=== PATIENT | female | born 1950 | race Caucasian/White ===

== ENCOUNTER 2018-11-02 00:28 | Observation (INO) | payer MEDICARE, OTHER ==
[~2018-11-02] VITALS: Ht 154.9 cm; Wt 77.3 kg
[2018-11-02] VITALS (19 sets, daily range): BP systolic 153–175; BP diastolic 58–97; PULSE 61–88; RESP 11–20; Ht 154.9 cm; Wt 77.3 kg
--- NOTE | 2018-11-02 01:12 | ERD ---
ER Documentation Chief Complaint Chief Complaint [id number],from home,vag bleed,dizziness HPI The patient is a 68-year-old female, presenting to the ER because of intermittent vaginal bleeding for the last 3 to 4 days, worse tonight. She complains of lightheadedness tonight from the vaginal bleeding, had similar symptoms 2 years ago and again last year but never follow-up with her inspector heating and refrigeration. She denies fever, chills, neck pain, chest pain, dyspnea, abdominal pain, vomiting, dysuria, diarrhea. She does not smoke nor drink Past medical history: Hypertension, diabetes mellitus, dyslipidemia Past surgical history: None ROS All systems reviewed and are negative except as per history of present illness. Medications Home Meds Reported Medications Icosapent Ethyl (VASCEPA) 1 Gm Capsule, 1 GM PO DAILY for 30 Days, #30 11/02/18 Nebivolol Hcl* (Bystolic*) 10 Mg Tablet, 10 MG PO DAILY for 30 Days, #30 11/02/18 Rosuvastatin Calcium* (Crestor*) 10 Mg Tablet, 10 MG PO DAILY for 30 Days, #30 11/02/18 Ezetimibe* (Zetia*) 10 Mg Tablet, 10 MG PO DAILY for 30 Days, #30 11/02/18 Alendronate Sodium* (Fosamax*) 70 Mg Tablet, 70 MG PO Q7D for 30 Days 11/02/18 Metformin* (Glucophage*) 500 Mg Tab, 500 MG PO BID for 30 Days, #60 11/02/18 Ibuprofen* (Ibuprofen*) 600 Mg Tablet, 600 MG PO DAILY for 30 Days, #60 11/02/18 Meclizine Hcl* (Meclizine Hcl*) 25 Mg Tablet, 25 MG PO DAILY for 30 Days, #30 11/02/18 Amlodipine Besylate/Benazepril (Lotrel 10-40 mg Capsule) 1 Each Capsule, 1 EACH PO DAILY, CAP 11/02/18 Allergies Allergies: Coded Allergies: No Known Allergy (Unverified , 11/02/18) Physical Exam Vitals Vital Signs Date Temp Pulse Resp B/P (MAP) Pulse Ox O2 O2 Flow FiO2 Time Delivery Rate 11/02/18 98.3 64 18 118/76 98 Room Air 07:00 (90) 11/02/18 97.2 59 18 122/60 94 00:31 (80) Physical Exam Const: No acute distress. Head: Atraumatic. Eyes: Normal Conjunctiva. ENT: Normal External Ears, Nose and Mouth. Neck: Full range of motion. No meningismus. Resp: Clear to auscultation bilaterally. Cardio: Regular rate and rhythm. Abd: Soft, non distended, normal bowel sounds, non tender. Skin: No petechiae or rashes. Back: No midline or flank tenderness. Ext: No cyanosis, or edema. Neur: Awake and alert. No focal deficit Psych: Normal Mood and Affect. Result Diagram: 11/02/18 1501 11/02/18 1501 Results 24 hrs Laboratory Tests Test 11/02/18 01:47 11/02/18 03:54 11/02/18 04:33 White Blood Count 11.0 10^3/ul Red Blood Count 3.48 10^6/ul Hemoglobin 10.6 g/dl Hematocrit 33.1 % Mean Corpuscular Volume 95.1 fl Mean Corpuscular Hemoglobin 30.5 pg Mean Corpuscular 32.0 g/dl Hemoglobin Concent Red Cell Distribution Width 11.8 % Platelet Count 213 10^3/UL Mean Platelet Volume 10.7 fl Immature Granulocytes % 0.400 % Neutrophils % 70.5 % Lymphocytes % 20.9 % Monocytes % 7.4 % Eosinophils % 0.3 % Basophils % 0.5 % Nucleated Red Blood Cells % 0.0 /100WBC Immature Granulocytes # 0.040 10^3/ul Neutrophils # 7.8 10^3/ul Lymphocytes # 2.3 10^3/ul Monocytes # 0.8 10^3/ul Eosinophils # 0.0 10^3/ul Basophils # 0.1 10^3/ul Nucleated Red Blood Cells # 0.0 10^3/ul Sodium Level 138 mmol/L Potassium Level 6.1 mmol/L 5.4 mmol/L Chloride Level 105 mmol/L Carbon Dioxide Level 27 mmol/L Anion Gap 6 Blood Urea Nitrogen 23 mg/dl Creatinine 1.04 mg/dl Est Glomerular Filtrat Rate mL/min 52 mL/min Glucose Level 256 mg/dl Hemoglobin A1c 7.0 % Calcium Level 9.1 mg/dl Total Bilirubin 0.3 mg/dl Direct Bilirubin 0.00 mg/dl Indirect Bilirubin 0.3 mg/dl Aspartate Amino Transf (AST/SGOT) 23 IU/L Alanine 30 IU/L Aminotransferase (ALT/SGPT) Alkaline Phosphatase 76 IU/L Troponin I < 0.012 ng/ml Total Protein 6.6 g/dl Albumin 3.7 g/dl Globulin 2.90 g/dl Albumin/Globulin Ratio 1.27 Lipase 103 U/L Bedside Urine pH (LAB) 6.5 Bedside Urine Protein (LAB) 2+ Bedside Urine Glucose (UA) Negative Bedside Urine Ketones (LAB) 1+ Bedside Urine Blood 3+ Bedside Urine Nitrite (LAB) Negative Bedside Urine Leukocyte Esterase Negative (L Current Medications Medications Dose Sig/Jeaneth Start Time Status Last (Trade) Ordered Route PRN Stop Time Admin Dose Reason Admin Sodium 500 ml @ Q1H ONCE 11/02/18 DC 11/02/18 Chloride 500 mls/hr IV 06:00 05:58 11/02/18 06:59 Procedures/[place] [id number] Radiology Main Line: [phone] DIAGNOSTIC IMAGING REPORT Patient: YOSVANY DEJESUS : 1950 Age: 68 Sex: F MR #: [id number] DOS: 11/02/18 0222 Ordering MD: NEVA TANNER MD Location: E/R Room/Bed: PROCEDURE: CT Abdomen and pelvis without contrast. CLINICAL INDICATION: Abdominal pain TECHNIQUE: CT scan of the abdomen and pelvis without contrast was performed on a multidetector high-resolution CT scan. . Coronal and sagittal reformatted images were obtained from the axial source images. Standard CT scan of the abdomen pelvis without contrast protocols were performed. The total exam CTDI equals 19.69 mGy and the total exam DLP equals 1059.27 mGy- cm. One or more of the following dose reduction techniques were used: - Automated exposure control. - Adjustment of the mA and/or kV according to patient size. Use of iterative reconstruction technique. Dicom images are available COMPARISON: None. FINDINGS: There are diverticular changes of the ascending descending and sigmoid colon without CT evidence of diverticulitis. Remainder the colon is unremarkable. The stomach, small bowel and appendix are unremarkable. No evidence of intra-abdominal free air, free fluid, abscesses or lymphadenopathy. Numerous coarse calcifications seen adjacent to the medial posterior aspect of the liver that is nonspecific and likely due to fat necrosis. Kidneys are normal in size without calcified calculi or hydronephrosis bilaterally. There is a pedunculated 2.5 cm angiomyolipoma involving the anterior inferior left kidney. No other intra masses bilaterally. No evidence ureteral calcified calculi or dilatation. Urinary bladder unremarkable. Anteverted anteflexed uterus. Left posterior mid uterine body partially pedunculated 2.5 cm leiomyoma. Uterus is otherwise unremarkable. No adnexal masses. Liver spleen adrenal glands and gallbladder unremarkable. No evidence of biliary ductal dilation. Fatty atrophic pancreas otherwise unremarkable. Lung bases are unremarkable. Coronary artery disease. Atherosclerosis of the aorta and iliac arteries without aneurysm. Abdominal pelvic wall unremarkable. Mild levorotatory scoliosis lower thoracic lumbar spine. Degenerative changes lower thoracic and lumbar spine without acute osseous findings are osteoblastic/osteolytic lesions. IMPRESSION: 1. Colonic diverticulosis without CT evidence of diverticulitis. 2. Unremarkable appendix. 3. No calcified urinary calculi obstructive uropathy. 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 4. Negative for intra-abdominal free air fluid abscesses or lymphadenopathy. RPTAT:AAJJ Physician Jesus Date Time Electronically viewed and signed by Physician Jesus on 11/02/2018 03:19 BM/ CC: NEVA TANNER MD [id number] [place] [id number] Radiology Main Line: [phone] DIAGNOSTIC IMAGING REPORT Patient: YOSVANY DEJEUSS : 1950 Age: 68 Sex: F MR #: [id number] DOS: 11/02/18 0222 Ordering MD: NEVA TANNER MD Location: E/R Room/Bed: PROCEDURE: US Pelvis. CLINICAL INDICATION: Vaginal bleeding TECHNIQUE: Multiple sonographic images of the pelvis were obtained utilizing a transabdominal and endovaginal technique. The images were reviewed on a PACS workstation. COMPARISON: None. FINDINGS: The uterus measures 8.6 x 4.0 x 5.9 cm. Endometrial contours are suboptimally defined, measured thickness of 10 mm. No abnormal vascularity is seen on color- flow imaging. Bilateral ovaries are not at the head. No adnexal masses demonstrated. No evidence of pelvic free fluid. IMPRESSION: 1. Diffusely thickened appearance of the endometrium, measured diameter 10 mm. No associated abnormal vascularity. Differential considerations include endometrial hyperplasia, polyp and carcinoma. If not previously evaluated, PROCESSING REP follow-up and further evaluation with hysterosonography or endometrial sampling is recommended. 2. Ovaries not visualized. RPTAT: [facility] Physician Rivera Date Time Electronically viewed and signed by Physician Rivera on 11/02/2018 05:02 xB/ CC: NEVA TANNER MD [id number] EKG: Read by emergency physician Rate/Rhythm: Normal Sinus Rhythm 64 beats/min QRS, ST, T-waves: No ST elevation, no T inversion Impression: Normal EKG Consultation: I discussed the patient with the on-call inspector heating and refrigeration Dr. Henning at 5:25 AM, who was made aware of the lab, the patient condition and treatment. She accepted the consult MEDICAL MAKING DECISION: The patient is a 68-year-old female, presenting to the ER because of acute vaginal bleeding that is concerning for acute endometrial hyperplasia versus endometrial carcinoma, acute dehydration, acute hyperkalemia most likely due to acute dehydration, acute hematuria. He was treated with normal saline 500 mL IV for acute dehydration The differential diagnoses considered include but are not limited to endometrial hyperplasia, endometrial cancer, endometrial polyps, electrolyte imbalance, dehydration, cardiac arrhythmia Departure Diagnosis: Primary Impression: Vaginal bleeding Additional Impressions: Hyperkalemia Dehydration Anemia Condition: Stable Comments I discussed the findings with the patient. I discussed the patient with Dr. Barkley at 5:35 AM, who was made aware of the lab, the treatment, the patient condition. The patient is admitted to [facility] Disclaimer: Inadvertent spelling and grammatical errors are likely due to EHR/dictation software use and do not reflect on the overall quality of patient care. Also, please note that the electronic time recorded on this note does not necessarily reflect the actual time of the patient encounter. NEVA TANNER MD November 02, 2018 01:12
[2018-11-02] MEDS ORDERED: ALEN70TA5 PO (03:05)
[2018-11-02] MEDS ORDERED: AMLO1CAP2 PO (03:05)
[2018-11-02] MEDS ORDERED: NEBI10TA2 PO (03:05)
[2018-11-02] MEDS ORDERED: ICOS1CAP PO (03:05)
[2018-11-02] MEDS ORDERED: IBUP-1542 PO (03:05)
[2018-11-02] MEDS ORDERED: RSV10T PO (03:05)
[2018-11-02] MEDS ORDERED: METF-849 PO (03:05)
[2018-11-02] MEDS ORDERED: MECL-77 PO (03:05)
[2018-11-02] MEDS ORDERED: EZET10TA31 PO (03:05)
[2018-11-02] MEDS ORDERED: SOD CHLORIDE 0.9% 500 ML IV ONE (06:00)
[2018-11-02] MEDS ORDERED: ONDANSETRON 4 MG INJ IV PRN ×3 (10:00→19:00)
[2018-11-02] MEDS ORDERED: ACETAMINOPHEN 325 MG TAB PO PRN ×2 (10:00→14:30)
--- NOTE | 2018-11-02 14:24 | CONS ---
Assessment/Plan Assessment/Plan Hospital Course (Demo Recall) N/A Assessment/Plan (Daily) 1. Post menopausal bleeding, thick endometrial lining, Discussed with the patient regarding hysteroscopy and D&C due to postmenopausal bleeding and thickened endometrial lining cannot rule out endometrial hyperplasia versus endometrial cancer 2. Patient presented with dizziness, initially to the hospital. Etiology of dizziness unclear, low likely to be related to amount of bleeding since the hemoglobin is mildly low Recommend the patient be evaluated by medicine team for optimization prior to taken to the OR. Currently bleeding controlled. She has minimal bleeding We will keep the patient n.p.o. Plan of care discussed with the patient and her son. Patient will decide about procedure and will let the ER and knows when she make her decision Hesitant to proceed with above-stated procedure however I had a long discussion with the patient about the risk of endometrial cancer or hyperplasia and strongly recommended to proceed with this procedure with close follow-up and monitoring after discharge from the hospital with her addiction medicine physician following week CBC type and screen Consultation Date/Type/Reason Admit Date/Time 11/02/2018 Date/Time of Note DATE: 11/02/18 TIME: 14:06 Hx of Present Illness 68 years old post menopausal female presented to emergency room with complaint of nausea, dizziness, vomiting and lightheadedness after she had an episode of heavy vaginal bleeding today. Patient has been menopause for years. Reports another episode of postmenopausal bleeding 3 years ago. She reports that she had been evaluated by her addiction medicine physician 3 years ago and she was cleared. Never had any biopsy. She denies any prior history of postmenopausal bleeding in the past. She has never been on any hormone replacement therapy neither taking any herbal hormonal medication. Patients symptoms improved when she arrived to the emergency room. She received fluid resuscitation. I was called by emergency room attending for [employer] evaluation due to postme nopausal bleeding. Patient had a pelvic ultrasound that showed thickened endometrial lining 1 cm which is abnormal for postmenopausal woman. Recommendation was to proceed with hysteroscopy and biopsy rule out endometrial hyperplasia or cancer. Constitutional: no complaints Eyes: no complaints ENT: no complaints Respiratory: no complaints Cardiovascular: no complaints Gastrointestinal: no complaints Genitourinary: bleeding Musculoskeletal: no complaints Skin: no complaints Neurologic: dizziness Endocrine: no complaints Lymphatic: no complaints Psychological: no complaints Immunologic: no complaints Past Medical History Past medical history: Next 1. Hypertension 2.Hyperlipidemia 3. Prediabetes Home Meds Reported Medications Icosapent Ethyl (VASCEPA) 1 Gm Capsule, 1 GM PO DAILY for 30 Days, #30 11/02/18 Nebivolol Hcl* (Bystolic*) 10 Mg Tablet, 10 MG PO DAILY for 30 Days, #30 11/02/18 Rosuvastatin Calcium* (Crestor*) 10 Mg Tablet, 10 MG PO DAILY for 30 Days, #30 11/02/18 Ezetimibe* (Zetia*) 10 Mg Tablet, 10 MG PO DAILY for 30 Days, #30 11/02/18 Alendronate Sodium* (Fosamax*) 70 Mg Tablet, 70 MG PO Q7D for 30 Days 11/02/18 Metformin* (Glucophage*) 500 Mg Tab, 500 MG PO BID for 30 Days, #60 11/02/18 Ibuprofen* (Ibuprofen*) 600 Mg Tablet, 600 MG PO DAILY for 30 Days, #60 11/02/18 Meclizine Hcl* (Meclizine Hcl*) 25 Mg Tablet, 25 MG PO DAILY for 30 Days, #30 11/02/18 Amlodipine Besylate/Benazepril (Lotrel 10-40 mg Capsule) 1 Each Capsule, 1 EACH PO DAILY, CAP 11/02/18 Medications Current Medications Ondansetron HCl (Zofran Inj) 4 mg BRIDGE ORDER PRN IV NAUSEA/VOMITING; Start 11/02/18 at 10:00; Stop 11/03/18 at 09:59 Acetaminophen (Tylenol Tab) 650 mg ER BRIDGE PRN PO .MILD PAIN 1-3 OR TEMP; Start 11/02/18 at 10:00; Stop 11/03/18 at 09:59 Allergies: Coded Allergies: No Known Allergy (Unverified , 11/02/18) Past Surgical History 1. Breast augmentation 2. RT ear surgery Family History Significant Family History: other (1. renal failure, mother 2. Lung cancer, father) Social History Patient denies of smoking, drinking alcohol or using any drugs. She is accompanied by her son who translates in Lao language Alcohol Use: none Smoking Status: Never smoker Drug Use: none Exam/Review of Systems Exam Vitals Vital Signs Date Temp Pulse Resp B/P (MAP) Pulse Ox O2 O2 Flow FiO2 Time Delivery Rate 11/02/18 98.3 75 18 140/61 99 Room Air 13:37 (87) Results Result Diagram: 11/02/18 0147 11/02/18 0433 Results 24hrs Laboratory Tests Test 11/02/18 01:47 11/02/18 03:54 11/02/18 04:33 White Blood Count 11.0 H Red Blood Count 3.48 L Hemoglobin 10.6 L Hematocrit 33.1 L Mean Corpuscular Volume 95.1 Mean Corpuscular Hemoglobin 30.5 Mean Corpuscular Hemoglobin Concent 32.0 Red Cell Distribution Width 11.8 Platelet Count 213 Mean Platelet Volume 10.7 H Immature Granulocytes % 0.400 Neutrophils % 70.5 Lymphocytes % 20.9 Monocytes % 7.4 Eosinophils % 0.3 Basophils % 0.5 Nucleated Red Blood Cells % 0.0 Immature Granulocytes # 0.040 H Neutrophils # 7.8 H Lymphocytes # 2.3 Monocytes # 0.8 Eosinophils # 0.0 Basophils # 0.1 Nucleated Red Blood Cells # 0.0 Sodium Level 138 Potassium Level 6.1 *H 5.4 H Chloride Level 105 Carbon Dioxide Level 27 Anion Gap 6 Blood Urea Nitrogen 23 H Creatinine 1.04 H Est Glomerular Filtrat Rate mL/min 52 L Glucose Level 256 H Calcium Level 9.1 Total Bilirubin 0.3 Direct Bilirubin 0.00 Indirect Bilirubin 0.3 Aspartate Amino Transf (AST/SGOT) 23 Alanine Aminotransferase (ALT/SGPT) 30 Alkaline Phosphatase 76 Troponin I < 0.012 Total Protein 6.6 Albumin 3.7 Globulin 2.90 Albumin/Globulin Ratio 1.27 Lipase 103 Bedside Urine pH (LAB) 6.5 Bedside Urine Protein (LAB) 2+ H Bedside Urine Glucose (UA) Negative Bedside Urine Ketones (LAB) 1+ H Bedside Urine Blood 3+ H Bedside Urine Nitrite (LAB) Negative Bedside Urine Leukocyte Esterase (L Negative Imaging Imaging PROCEDURE: US Pelvis. CLINICAL INDICATION: Vaginal bleeding TECHNIQUE: Multiple sonographic images of the pelvis were obtained utilizing a transabdominal and endovaginal technique. The images were reviewed on a PACS workstation. COMPARISON: None. FINDINGS: The uterus measures 8.6 x 4.0 x 5.9 cm. Endometrial contours are suboptimally defined, measured thickness of 10 mm. No abnormal vascularity is seen on color- flow imaging. Bilateral ovaries are not at the head. No adnexal masses demonstrated. No evidence of pelvic free fluid. IMPRESSION: 1. Diffusely thickened appearance of the endometrium, measured diameter 10 mm. No associated abnormal vascularity. Differential considerations include endometrial hyperplasia, polyp and carcinoma. If not previously evaluated, [employer] follow-up and further evaluation with hysterosonography or endometrial sampling is recommended. 2. Ovaries not visualized. RPTAT: [facility] PROCEDURE: CT Abdomen and pelvis without contrast. CLINICAL INDICATION: Abdominal pain TECHNIQUE: CT scan of the abdomen and pelvis without contrast was performed on a multidetector high-resolution CT scan. . Coronal and sagittal reformatted images were obtained from the axial source images. Standard CT scan of the abdomen pelvis without contrast protocols were performed. The total exam CTDI equals 19.69 mGy and the total exam DLP equals 1059.27 mGy- cm. One or more of the following dose reduction techniques were used: - Automated exposure control. - Adjustment of the mA and/or kV according to patient size. Use of iterative reconstruction technique. Dicom images are available COMPARISON: None. FINDINGS: There are diverticular changes of the ascending descending and sigmoid colon without CT evidence of diverticulitis. Remainder the colon is unremarkable. The stomach, small bowel and appendix are unremarkable. No evidence of intra-abdominal free air, free fluid, abscesses or lymphadenopathy. Numerous coarse calcifications seen adjacent to the medial posterior aspect of the liver that is nonspecific and likely due to fat necrosis. Kidneys are normal in size without calcified calculi or hydronephrosis bilaterally. There is a pedunculated 2.5 cm angiomyolipoma involving the anterior inferior left kidney. No other intra masses bilaterally. No evidence ureteral calcified calculi or dilatation. Urinary bladder unremarkable. Anteverted anteflexed uterus. Left posterior mid uterine body partially pedunculated 2.5 cm leiomyoma. Uterus is otherwise unremarkable. No adnexal masses. Liver spleen adrenal glands and gallbladder unremarkable. No evidence of biliary ductal dilation. Fatty atrophic pancreas otherwise unremarkable. Lung bases are unremarkable. Coronary artery disease. Atherosclerosis of the aorta and iliac arteries without aneurysm. Abdominal pelvic wall unremarkable. Mild levorotatory scoliosis lower thoracic lumbar spine. Degenerative changes lower thoracic and lumbar spine without acute osseous findings are osteoblastic/osteolytic lesions. IMPRESSION: 1. Colonic diverticulosis without CT evidence of diverticulitis. 2. Unremarkable appendix. 3. No calcified urinary calculi obstructive uropathy. 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 4. Negative for intra-abdominal free air fluid abscesses or lymphadenopathy. RPTAT:AAJJ Cehlsey Parra, Physician Date Time Electronically viewed and signed by Chelsey Parra Physician on 11/02/2018 03:19 BM/ CC: NEVA TANNER MD Medications Medication Current Medications Ondansetron HCl (Zofran Inj) 4 mg BRIDGE ORDER PRN IV NAUSEA/VOMITING; Start 11/02/18 at 10:00; Stop 11/03/18 at 09:59 Acetaminophen (Tylenol Tab) 650 mg ER BRIDGE PRN PO .MILD PAIN 1-3 OR TEMP; Start 11/02/18 at 10:00; Stop 11/03/18 at 09:59 KANDI SEVERINO MD November 02, 2018 14:17
[2018-11-02] MEDS ORDERED: ZOLPIDEM 5 MG TAB PO PRN (14:30)
[2018-11-02] MEDS: LACTATED RINGER'S 1,000 ML IV SCH (14:30)
[2018-11-02] MEDS: DOCUSATE SODIUM 100 MG CAP PO SCH (14:30)
[2018-11-02] MEDS ORDERED: CEFAZOLIN 2 GM/50 ML (PMX) 50 ML IVPB ONE (14:30)
--- NOTE | 2018-11-02 15:12 | HP ---
Date/Time of Note Date/Time of Note DATE: 11/02/18 TIME: 14:58 Assessment/Plan VTE Prophylaxis SCD applied (from Nsg): Yes Pharmacological prophylaxis: NA/contraindicated Pharm contraindication: bleeding Lines/Catheters IV Catheter Type (from Nrsg): Saline Lock Assessment/Plan Hospital Course 68-year-old female who presented to the emergency room with postmenopausal bleeding x3 years with a bad episode warranting ER visit managed as follows : 1. Acute on chronic postmenopausal bleeding with endometrial thickening on ultrasound 2. Mild ZENIA with hyperkalemia 3. Rule out chronic kidney disease 4. Diabetes mellitus with suboptimal home control 5. Chronic dyslipidemia 6. Acute on chronic anemia with normocytic indices 7. Leukocytosis, likely reactive 8. 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 EKG has been reviewed by me shows normal normal sinus rhythm with normal rate. We will also repeat basic metabolic profile. If potassium levels are improved and CXR has no acute abnormalities, no other cardiac intervention is warranted for risk st ratification at this time. Patient may proceed with endometrial biopsy. -Get hemoglobin A1c, use sliding scale only for now, but patient will require hypoglycemic therapy at discharge. Apparently prior to this patient was prediabetic and not on hypoglycemic therapy. -Patient to benefit from outpatient monitoring of angiomyolipoma on the left kidney, may require urology consult even, but this may be followed outpatient -Resume home medications for blood pressure and dyslipidemia -Further interventions per clinical course. Result Diagram: 11/02/18 0147 11/02/18 0433 Results 24hrs Laboratory Tests Test 11/02/18 01:47 11/02/18 03:54 11/02/18 04:33 White Blood Count 11.0 H Red Blood Count 3.48 L Hemoglobin 10.6 L Hematocrit 33.1 L Mean Corpuscular Volume 95.1 Mean Corpuscular Hemoglobin 30.5 Mean Corpuscular Hemoglobin Concent 32.0 Red Cell Distribution Width 11.8 Platelet Count 213 Mean Platelet Volume 10.7 H Immature Granulocytes % 0.400 Neutrophils % 70.5 Lymphocytes % 20.9 Monocytes % 7.4 Eosinophils % 0.3 Basophils % 0.5 Nucleated Red Blood Cells % 0.0 Immature Granulocytes # 0.040 H Neutrophils # 7.8 H Lymphocytes # 2.3 Monocytes # 0.8 Eosinophils # 0.0 Basophils # 0.1 Nucleated Red Blood Cells # 0.0 Sodium Level 138 Potassium Level 6.1 *H 5.4 H Chloride Level 105 Carbon Dioxide Level 27 Anion Gap 6 Blood Urea Nitrogen 23 H Creatinine 1.04 H Est Glomerular Filtrat Rate mL/min 52 L Glucose Level 256 H Calcium Level 9.1 Total Bilirubin 0.3 Direct Bilirubin 0.00 Indirect Bilirubin 0.3 Aspartate Amino Transf (AST/SGOT) 23 Alanine Aminotransferase (ALT/SGPT) 30 Alkaline Phosphatase 76 Troponin I < 0.012 Total Protein 6.6 Albumin 3.7 Globulin 2.90 Albumin/Globulin Ratio 1.27 Lipase 103 Bedside Urine pH (LAB) 6.5 Bedside Urine Protein (LAB) 2+ H Bedside Urine Glucose (UA) Negative Bedside Urine Ketones (LAB) 1+ H Bedside Urine Blood 3+ H Bedside Urine Nitrite (LAB) Negative Bedside Urine Leukocyte Esterase (L Negative HPI/ROS Admit Date/Time Admit Date/Time 11/02/2018 Hx of Present Illness 68-year-old female who presented to the emergency room with postmenopausal bleeding. This has been on and off over the last 3 years, but yesterday had a significant episode that warranted the emergency room visit. This episode was assisted with nausea vomiting and some mild dizziness. Last Pap smear was roughly about 3 months ago again for the same indication, and per the patient and her family she seems to think it was normal because she was not told to do any follow-up. At this time she is stable, she is still having some bleeding, but it is only minimal. She denies pain, denies fever. A pelvic ultrasound that was done on arrival showed a thickened endometrium measuring 10 mm with differential for endometrial hyperplasia, polyp and carcinoma. Patient is recommended for endometrial biopsy and admission. Concern also was a potassium of 6.1 and a creatinine of 1.04. Patient is a known diabetic and her blood sugar was elevated at 256 on arrival as well. Otherwise she has no complaints. She denies fever, denies dysuria, denies chest pain, denies passing out episodes. She has some lethargy, but no dizziness or fainting spells. ROS 12 point review if systems was done and pertinent findings are as noted. PMH/Family/Social Past Medical History dyslipidemia GERD Osteoporosis Medical History: diabetes, hypertension Medications Current Medications Ondansetron HCl (Zofran Inj) 4 mg BRIDGE ORDER PRN IV NAUSEA/VOMITING; Start 11/02/18 at 10:00; Stop 11/03/18 at 09:59 Acetaminophen (Tylenol Tab) 650 mg ER BRIDGE PRN PO .MILD PAIN 1-3 OR TEMP; Start 11/02/18 at 10:00; Stop 11/03/18 at 09:59 Miscellaneous Information (* Miscellaneous Pharmacy Order) Discontinue current oral sulfonylur... ONCE ONCE XX ; Start 11/02/18 at 14:30; Stop 11/02/18 at 14:31; Status UNV Diagnostic Test (Pha) (Accu-Chek) 1 XX ; Start 11/03/18 at 02:00; Status UNV Miscellaneous Information (* Miscellaneous Pharmacy Order) HYPOGLYCEMIA PROTOCOL w... ONCE ONCE XX ; Start 11/02/18 at 14:30; Stop 11/02/18 at 14:31; Status UNV Insulin Aspart (Novolog Insulin Pen) NOVOLOG *MILD* ALGORITHM WITH MEALS BEDTIME SC ; Start 11/02/18 at 18:00; Status UNV Miscellaneous Information (* Miscellaneous Pharmacy Order) Discontinue all previ... ONCE ONCE XX ; Start 11/02/18 at 14:30; Stop 11/02/18 at 14:31; Status UNV Ondansetron HCl (Zofran Inj) 4 mg Q6H PRN IV NAUSEA/VOMITING; Start 11/02/18 at 14:30; Status UNV Acetaminophen (Tylenol Tab) 650 mg Q6H PRN PO .PAIN 1-3 OR TEMP; Start 11/02/18 at 14:30; Status UNV Docusate Sodium (Colace) 100 mg Q12H PO ; Start 11/02/18 at 14:30; Status UNV Zolpidem Tartrate (Ambien) 5 mg QHS PRN PO .INSOMNIA; Start 11/02/18 at 14:30; Status UNV Famotidine (Pepcid) 20 mg Q12 PO ; Start 11/02/18 at 21:00; Status UNV EZETIMIBE (Zetia) 10 mg DAILY PO ; Start 11/03/18 at 09:00; Status UNV Meclizine HCl (Antivert) 25 mg DAILY PO ; Start 11/03/18 at 09:00; Status UNV Miscellaneous Information 1 each DAILY PO ; Start 11/02/18 at 14:30; Status UNV Miscellaneous Information 1 gm DAILY PO ; Start 11/02/18 at 14:30; Status UNV Miscellaneous Information 10 mg DAILY PO ; Start 11/02/18 at 14:30; Status UNV Lactated Ringer's 1,000 ml @ 125 mls/hr Q8H IV ; Start 11/02/18 at 14:30; Status UNV Cefazolin Sodium/ Dextrose 50 ml @ 100 mls/hr PRE-OP ONCE IVPB ; Start 11/02/18 at 14:30; Stop 11/02/18 at 14:59; Status UNV Coded Allergies: No Known Allergy (Unverified , 11/02/18) Family History Significant Family History: no pertinent family hx, other (1. renal failure, mother 2. Lung cancer, father) Social History Alcohol Use: none Smoking Status: Never smoker Drug Use: none Exam/Review of Systems Vital Signs Vitals Vital Signs Date Temp Pulse Resp B/P (MAP) Pulse Ox O2 O2 Flow FiO2 Time Delivery Rate 11/02/18 98.3 75 18 140/61 99 Room Air 13:37 (87) Exam Exam General: A&O x3, answering questions appropriately, no distress HEENT: NC/ AT. PERRL. EOM intact, mild pallor, no icterus Neck: supple CVS: S1, S2, RRR. no murmurs. no pain on chest wall palpation Lungs: CTA b/l. no wheezing or rhonchi Abd: soft, nontender, +BS Ext: moving all extremities, no edema skin: no rashes, no ecchymosis Additional Comments PROCEDURE: US Pelvis. CLINICAL INDICATION: Vaginal bleeding TECHNIQUE: Multiple sonographic images of the pelvis were obtained utilizing a transabdominal and endovaginal technique. The images were reviewed on a PACS workstation. COMPARISON: None. FINDINGS: The uterus measures 8.6 x 4.0 x 5.9 cm. Endometrial contours are suboptimally defined, measured thickness of 10 mm. No abnormal vascularity is seen on color- flow imaging. Bilateral ovaries are not at the head. No adnexal masses demonstrated. No evidence of pelvic free fluid. IMPRESSION: 1. Diffusely thickened appearance of the endometrium, measured diameter 10 mm. No associated abnormal vascularity. Differential considerations include endometrial hyperplasia, polyp and carcinoma. If not previously evaluated, TRA[employer]EL INFORMATION [employer] SUPERVISOR follow-up and further evaluation with hysterosonography or endometrial sampling is recommended. 2. Ovaries not visualized. RPTAT: HJBB Abdulaziz Mcmillan Physician Date Time Electronically viewed and signed by Abdulaziz Mcmillan Physician on 11/02/2018 05: 02 xB/ CC: NEVA TANNER MD [id number] PROCEDURE: CT Abdomen and pelvis without contrast. CLINICAL INDICATION: Abdominal pain TECHNIQUE: CT scan of the abdomen and pelvis without contrast was performed on a multidetector high-resolution CT scan. . Coronal and sagittal reformatted images were obtained from the axial source images. Standard CT scan of the abdomen pelvis without contrast protocols were performed. The total exam CTDI equals 19.69 mGy and the total exam DLP equals 1059.27 mGy- cm. One or more of the following dose reduction techniques were used: - Automated exposure control. - Adjustment of the mA and/or kV according to patient size. Use of iterative reconstruction technique. Dicom images are available COMPARISON: None. FINDINGS: There are diverticular changes of the ascending descending and sigmoid colon without CT evidence of diverticulitis. Remainder the colon is unremarkable. The stomach, small bowel and appendix are unremarkable. No evidence of intra-abdominal free air, free fluid, abscesses or lymphadenopathy. Numerous coarse calcifications seen adjacent to the medial posterior aspect of the liver that is nonspecific and likely due to fat necrosis. Kidneys are normal in size without calcified calculi or hydronephrosis bilaterally. There is a pedunculated 2.5 cm angiomyolipoma involving the anterior inferior left kidney. No other intra masses bilaterally. No evidence ureteral calcified calculi or dilatation. Urinary bladder unremarkable. Anteverted anteflexed uterus. Left posterior mid uterine body partially pedunculated 2.5 cm leiomyoma. Uterus is otherwise unremarkable. No adnexal masses. Liver spleen adrenal glands and gallbladder unremarkable. No evidence of biliary ductal dilation. Fatty atrophic pancreas otherwise unremarkable. Lung bases are unremarkable. Coronary artery disease. Atherosclerosis of the ao rta and iliac arteries without aneurysm. Abdominal pelvic wall unremarkable. Mild levorotatory scoliosis lower thoracic lumbar spine. Degenerative changes lower thoracic and lumbar spine without acute osseous findings are osteoblastic/osteolytic lesions. IMPRESSION: 1. Colonic diverticulosis without CT evidence of diverticulitis. 2. Unremarkable appendix. 3. No calcified urinary calculi obstructive uropathy. 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 4. Negative for intra-abdominal free air fluid abscesses or lymphadenopathy. RPTAT:AAJJ Physician Jesus Date Time Electronically viewed and signed by Physician Jesus on 11/02/2018 03:19 BM/ CC: NEVA TANNER MD [id number] I reviewed EKG Rate: Within normal limits Rhythm: sinus Note: No ST elevation or depressions noted concerning for acute ischemic event. REY PRYOR November 02, 2018 15:08
[2018-11-02] MEDS ORDERED: GLUCOSE GEL 15 GRAM TUBE PO PRN ×2 (16:00)
[2018-11-02] MEDS ORDERED: GLUCOSE GEL 15 GRAM TUBE BUCCAL PRN (16:00)
[2018-11-02] MEDS ORDERED: DEXTROSE 50% 50 ML SYRINGE IV PRN ×2 (16:00)
[2018-11-02] MEDS ORDERED: GLUCAGON 1 MG INJ IM PRN (16:00)
[2018-11-02] MEDS ORDERED: INSULIN ASPART [NOVOLOG] 3 ML PEN SC SCH ×2 (17:00→18:00)
--- NOTE | 2018-11-02 18:35 | PREAC ---
Date/Time of Note Date/Time of Note DATE: 11/02/18 TIME: 18:33 Anesthesia Eval and Record Evaluation Time Pre-Procedure Interview DATE: 11/02/18 TIME: 18:33 Age 68 Sex female NPO: 8 hrs Preoperative diagnosis post menopausal vaginal bleeding Planned procedure hysteroscopy d&C Past Medical History Past Medical History: Includes Cardio: HTN Endo: Diabetes GI: Obesity Surgery & Anesthesia Issues No known issue Meds Anticoagulation: No Beta Cristela within 24 hr: Yes Reason Beta Cristela not given: Pt. not on B-Cristela Reported Medications Icosapent Ethyl (VASCEPA) 1 Gm Capsule, 1 GM PO DAILY for 30 Days, #30 11/02/18 Nebivolol Hcl* (Bystolic*) 10 Mg Tablet, 10 MG PO DAILY for 30 Days, #30 11/02/18 Rosuvastatin Calcium* (Crestor*) 10 Mg Tablet, 10 MG PO DAILY for 30 Days, #30 11/02/18 Ezetimibe* (Zetia*) 10 Mg Tablet, 10 MG PO DAILY for 30 Days, #30 11/02/18 Alendronate Sodium* (Fosamax*) 70 Mg Tablet, 70 MG PO Q7D for 30 Days 11/02/18 Metformin* (Glucophage*) 500 Mg Tab, 500 MG PO BID for 30 Days, #60 11/02/18 Ibuprofen* (Ibuprofen*) 600 Mg Tablet, 600 MG PO DAILY for 30 Days, #60 11/02/18 Meclizine Hcl* (Meclizine Hcl*) 25 Mg Tablet, 25 MG PO DAILY for 30 Days, #30 11/02/18 Amlodipine Besylate/Benazepril (Lotrel 10-40 mg Capsule) 1 Each Capsule, 1 EACH PO DAILY, CAP 11/02/18 Current Medications Diagnostic Test (Pha) (Accu-Chek) 1 ea 02 XX ; Start 11/03/18 at 02:00 Ondansetron HCl (Zofran Inj) 4 mg Q6H PRN IV NAUSEA/VOMITING; Start 11/02/18 at 14:30 Acetaminophen (Tylenol Tab) 650 mg Q6H PRN PO .PAIN 1-3 OR TEMP; Start 11/02/18 at 14:30 Docusate Sodium (Colace) 100 mg Q12H PO ; Start 11/02/18 at 14:30 Zolpidem Tartrate (Ambien) 5 mg QHS PRN PO .INSOMNIA; Start 11/02/18 at 14:30 Famotidine (Pepcid) 20 mg Q12 PO ; Start 11/02/18 at 21:00 EZETIMIBE (Zetia) 10 mg DAILY PO ; Start 11/03/18 at 09:00 Meclizine HCl (Antivert) 25 mg DAILY PO ; Start 11/03/18 at 09:00 Amlodipine Besylate (Norvasc) 10 mg DAILY PO ; Start 11/03/18 at 09:00 Miscellaneous Information 1 gm DAILY PO ; Start 11/02/18 at 14:30; Status UNV Atorvastatin Calcium (Lipitor) 40 mg DAILY@2100 PO ; Start 11/02/18 at 21:00 Lactated Ringer's 1,000 ml @ 80 mls/hr [id number] IV ; Start 11/02/18 at 14:30 Insulin Aspart (Novolog Insulin Pen) NOVOLOG *MILD* ALGORI... Q4 SC ; Start 11/02/18 at 17:00 Miscellaneous Information 1 ea NOTE XX ; Start 11/02/18 at 16:00 Glucose (Glutose) 15 gm Q15M PRN PO DECREASED GLUCOSE; Start 11/02/18 at 16:00 Glucose (Glutose) 22.5 gm Q15M PRN PO DECREASED GLUCOSE; Start 11/02/18 at 16:00 Dextrose (D50w Syringe) 25 ml Q15M PRN IV DECREASED GLUCOSE; Start 11/02/18 at 16:00 Dextrose (D50w Syringe) 50 ml Q15M PRN IV DECREASED GLUCOSE; Start 11/02/18 at 16:00 Glucagon (Glucagen) 1 mg Q15M PRN IM DECREASED GLUCOSE; Start 11/02/18 at 16:00 Glucose (Glutose) 15 gm Q15M PRN BUCCAL DECREASED GLUCOSE; Start 11/02/18 at 16:00 Benazepril HCl (Lotensin) 40 mg DAILY PO ; Start 11/03/18 at 09:00 Meds reviewed: Yes Allergies Coded Allergies: No Known Allergy (Unverified , 11/02/18) Allergies Reviewed: Yes Labs/Studies Labs Reviewed: Reviewed by anesthesiologist Result Diagram: 11/02/18 1501 11/02/18 1501 Laboratory Tests 11/02/18 15:01 Blood Bank Test 11/02/18 01:47 Antibody Screen NEGATIVE Blood Type A POSITIVE test: N/A Studies: ECG (sr), CXR (nl) Pre-procedure Exam Last vitals Vital Signs Date Temp Pulse Resp B/P (MAP) Pulse Ox O2 O2 Flow FiO2 Time Delivery Rate 11/02/18 98.9 75 18 168/67 100 17:17 (100) 11/02/18 Room Air 17:15 Airway: Adequate mouth opening Mallampati: Mallampati I Teeth: Normal Lung: Normal Heart: Normal ASA Physical Status ASA physical status: 2 Emergency: None Planned Anesthetic General/MAC: LMA Planned Pain Management Parenteral pain med Pre-operative Attestations Prior to commencing anesthesia and surgery, the patient was re-evaluated, there was verification of: *The patient's identity *The results of appropriate recent lab work and preoperative vital signs *The above evaluation not changing prior to induction *Anesthetic plan, risk benefits, alternative and complications discussed with patient/family; questions answered; patient/family understands, accepts and wishes to proceed. DEDE FARIAS MD November 02, 2018 18:35
[2018-11-02] MEDS ORDERED: LABETALOL HCL 20MG INJ IV PRN (19:00)
[2018-11-02] MEDS ORDERED: MEPERIDINE 25 MG INJ IV PRN (19:00)
[2018-11-02] MEDS ORDERED: HYDROmorphONE 1 MG/5 ML IV SYRINGE IV PRN ×3 (19:00)
[2018-11-02] MEDS ORDERED: FENTAnyl 50 MCG/ML VIAL IV PRN ×3 (19:00)
[2018-11-02] MEDS ORDERED: DIPHENHYDRAMINE 50 MG INJ IV PRN (19:00)
[2018-11-02] MEDS ORDERED: hydrALAzine 20 MG INJ IV PRN (19:00)
[2018-11-02] MEDS ORDERED: PROPOFOL 20 ML ONE (19:21)
[2018-11-02] MEDS ORDERED: METOCLOPRAMIDE 10 MG INJ ONE (19:21)
[2018-11-02] MEDS ORDERED: ONDANSETRON 4 MG INJ ONE (19:21)
[2018-11-02] MEDS ORDERED: MIDAZOLAM 1 MG/ML 2 ML INJ ONE (19:21)
[2018-11-02] MEDS ORDERED: CEFAZOLIN 1 GM INJ ONE (19:40)
[2018-11-02] MEDS ORDERED: FENTAnyl 50 MCG/ML VIAL ONE (20:01)
--- NOTE | 2018-11-02 20:57 | OPR ---
Date/Time of Note Date/Time of Note DATE: 11/02/18 TIME: 20:47 Operative Report Free Text/Dictation 11/02/2018 Procedure Date: November 02, 2018 Preoperative Diagnosis 1. Post menopausal bleeding 2. Dizziness, lightheadadness Postoperative Diagnosis Significant large amount of hyperplastic endometrium inside the uterine cavity concerning for possible endometrial cancer versus endometrial hyperplasia noted Operation/Procedure Performed Hysteroscopy and D&C Surgeon see signature line Counter Installer Surgical scrub Anesthesia Type: MAC Anesthesiologist: DEDE FARIAS MD Estimated Blood Loss: 10 - 50 ml's Transfusion none Specimen Endocervical curetting and endometrial curetting Grafts/Implants none Tubes/Drains None Complications none Pt Condition Post Procedure: stable Disposition: PACU Indications Post menopausal bleeding Procedure Description After discussion with the patient about risk and benefit of procedure including risk of infection, bleeding, damage to surrounding structures including uterine perforation and risk of blood transfusion including but not limited to blood borne infection including HIV, hepatitis B and C and transfusion reaction informed consent was obtained. Patient verbalized understanding all above risks and desires to proceed. She received a dose of Ancef in the way to the OR. She was then prepped and draped in the dorsal lithotomy position. General LMA anesthesia was placed. After prepped and draped in the dorsal lithotomy position first examined anesthesia performed. Uterus was noted to be about 10 to 11 cm and mobile. Cervix appeared to be normal. No abnormal vaginal cervical lesions noted. There was no fullness in adnexa. Then first using Kevorkian curette the endocervical canal and 360 degrees was curette and endocervical curetting was sent to pathology. Then using a 5 mm hysteroscope under direct visualization and normal saline passed through the cervix inside the uterine cavity. There was suboptimal visualization of the uterine cavity due to large amount of proliferative hyperplastic endometrium. There was also leaking of fluid from the hysteroscope device that appears to be defective due to loss of connection. Then the hysteroscope was removed then us ing a sharp curette the entire endometrial cavity and 360 degrees was curette and was sent as well to pathology. Large amount of endometrial hyperplastic proliferative tissue was obtained and was sent to pathology. Hemostasis was complete at the end. Then after removing of the extra tissue the tenaculum from the anterior lip of the cervix was removed. The tenaculum site silver nitrate was applied. Hemostasis was complete. Patient tolerated the procedure well and was then transferred to recovery room in stable condition. KANDI SEVERINO MD November 02, 2018 20:57
[2018-11-02] MEDS ORDERED: ATORVASTATIN 40 MG TAB PO SCH (21:00)
[2018-11-02] MEDS: BENAZEPRIL 40 MG TAB PO SCH (22:57)
[2018-11-02] MEDS: AMLODIPINE 10 MG TAB PO SCH (22:57)
[2018-11-02] MEDS: FAMOTIDINE 20 MG TAB PO SCH (23:00)
[2018-11-03 00:35] VITALS: BP 139/64; PULSE 58; RESP 18
[2018-11-03] MEDS ORDERED: ACCU-CHEK XX SCH ×3 (02:00)
[2018-11-03] MEDS: DOCUSATE SODIUM 100 MG CAP PO SCH ×2 (02:30→14:30)
[2018-11-03] MEDS: LACTATED RINGER'S 1,000 ML IV SCH ×2 (03:18→15:30)
[2018-11-03 07:25] VITALS: BP 138/63; PULSE 60; RESP 18
[2018-11-03] MEDS: INSULIN ASPART [NOVOLOG] 3 ML PEN SC SCH ×2 (07:50→11:40)
[2018-11-03] MEDS: BENAZEPRIL 40 MG TAB PO SCH (08:34)
[2018-11-03] MEDS: AMLODIPINE 10 MG TAB PO SCH (08:34)
[2018-11-03] MEDS: FAMOTIDINE 20 MG TAB PO SCH (08:40)
--- NOTE | 2018-11-03 08:51 | PAC ---
Date/Time of Note Date/Time of Note DATE: 11/03/18 TIME: 08:51 Post-Anesthesia Notes Post-Anesthesia Note Last documented vital signs Vital Signs Date Temp Pulse Resp B/P (MAP) Pulse Ox O2 O2 Flow FiO2 Time Delivery Rate 11/03/18 98.0 60 18 138/63 94 Room Air 07:25 (88) 11/02/18 8.0 20:49 Activity: WNL Respiratory function: WNL Cardiovascular function: WNL Mental status: Baseline Pain reasonably controlled: Yes Hydration appropriate: Yes Nausea/Vomiting absent: No DEDE FARIAS MD November 03, 2018 08:51
[2018-11-03] MEDS ORDERED: AMLODIPINE 10 MG TAB PO SCH (09:00)
[2018-11-03] MEDS ORDERED: MECLIZINE 25 MG TAB PO SCH (09:00)
[2018-11-03] MEDS ORDERED: FISH OIL 1,000 MG CAP PO SCH (09:00)
[2018-11-03] MEDS ORDERED: EZETIMIBE 10 MG TAB PO SCH (09:00)
[2018-11-03] MEDS ORDERED: BENAZEPRIL 40 MG TAB PO SCH (09:00)
--- NOTE | 2018-11-03 11:51 | PDOCDIS ---
Discharge Instructions DIAGNOSIS Discharge Diagnosis Post menopausal bleeding . CONDITION [id number] Patient Condition: [id number] Stable HOME CARE INSTRUCTIONS: [id number] Diet Instructions: [id number] Low Fat /Cholesterol ACTIVITY: [id number] Activity Restrictions: [id number] Slowly Increase Activity Rest between Activity FOLLOW UP/APPOINTMENTS Follow-up Plan * You had an endometrial biopsy done, please follow-up with the quill cleaner as below within the next 1 to 2 weeks for pathology report and further care. Name, Degree : Mariah Montes MD Specialty : Obstetrics & Gynecology Office Address : [address] [place] [address] Office Office * Also an incidental finding of an angiomyolipoma was found on your left kidney, it measures 3.4 x 2.8 x 3.6. No further intervention is warranted at this time, just let your primary care doctor know so that they can continue to monitor it. . REY PRYOR November 03, 2018 11:51
--- NOTE | 2018-11-03 14:43 | QN ---
Documentation Comment only having vaginal spotting no cramping pain pathologic report not available will f/u in my office in 2weeks nothing in the vagina for 2weeks DOMINIQUE ORTEGA MD November 03, 2018 14:43
[2018-11-03] MEDS ORDERED: DOCU-144 PO (14:47)
[2018-11-03] MEDS ORDERED: FERR325T5 PO (14:47)
[2018-11-03 15:11] VITALS: BP 134/66; PULSE 66; RESP 18
--- NOTE | 2018-11-04 00:58 | DS ---
DATE OF ADMISSION: 11/02/2018 DATE OF DISCHARGE: 11/03/2018 FINAL DIAGNOSES: A 68-year-old female who had presented to the emergency room with postmenopausal bl eeding that has been going on for 3 years but has had a bad episode where she went for an ER visit. She was managed as follows: 1. [id number] postmenopausal bleeding with a concerning finding of endometrial thickening on u ltrasound. -- She underwent hysteroscopy and D and C on 11/02/2018. The findings were significant large amount of hyperplastic endometrium inside the uterine cavity concerning for possible endometrial cancer vers us endometrial hyperplasia; the patient was curetted and biopsy was obtained with improvement in blee ding postoperatively. 2. Diabetes mellitus type 2. 3. Hypertension. 4. Dyslipidemia with hypertriglyceridemia. 5. Hypochromic anemia, likely secondary to chronic blood loss. 6. Chronic osteoporosis. 7. New finding of 3.5 x 3 x 3 cm angiomyolipoma on the left kidney. CONSULTS ON THE CASE: Dr. Kandi Severino for gynecology and Dr. Willem Montes. INTERVENTIONS: See above. DISCHARGE CONDITION: Stable. FOLLOWUP: The patient will follow up with Dr. Montes for pathology results and further management. DISCHARGE MEDICATIONS: For a complete list of discharge medications, please review the patient's [facility] rt. Essentially, the patient was continued on her previous home medications just with the addition o f ferrous sulfate and Colace. DISCHARGE: Recommended diet is diabetic and low-cholesterol and low-fat diet. ACTIVITY: As tolerated. Time spent on discharge coordination was more than 1 hour. Dictated By: REY PRYOR MD BA/NTS Conf#: [id number] DID#: [id number] CC: KANDI SEVERINO MD;*EndCC*
== END 2018-11-03 16:12 | disposition home or self-care (01) ==
LOC: E/R 00:28 → MS1 09:36
PROVIDERS: ADMIT Family Medicine; ATTEND Family Medicine
DX: C54.1 Malignant neoplasm of endometrium (principal); N95.0 Postmenopausal bleeding; E11.9 Type 2 diabetes mellitus without complications; I10 Essential (primary) hypertension; E78.5 Hyperlipidemia, unspecified; E78.1 Pure hyperglyceridemia; D50.9 Iron deficiency anemia, unspecified; M81.0 Age-related osteoporosis without current pathological fracture; D17.71 Benign lipomatous neoplasm of kidney; Z79.84 Long term (current) use of oral hypoglycemic drugs
CPT/HCPCS: 58558; 71045; 74176; 76775; 76830; 76856; 80048; 80053; 80061; 81003; 82962; 83036; 83690; 83735; 84100; 84132; 84443; 84484; 85025; 85610; 85730; 86850; 86900; 86901; 88305; 93005; 99285; G0378; J0690; J1815; J2250; J2405; J2765; J3010; J7040; J7120